=== PATIENT | male | born 1955 | race Asian ===

== ENCOUNTER 2016-07-15 09:32 | Day surgery (SDC) | payer OTHER ==
[~2016-07-15] VITALS: Ht 167.6 cm; Wt 78.5 kg
[2016-07-15 10:15] VITALS: Ht 167.6 cm; Wt 78.5 kg
[2016-07-15 10:35] VITALS: BP 118/67; PULSE 66; RESP 18
[2016-07-15] MEDS ORDERED: MIDAZOLAM 1 MG/ML 2 ML INJ ONE ×2 (11:34)
[2016-07-15] MEDS ORDERED: FENTAnyl 50 MCG/ML VIAL ONE (11:35)
--- NOTE | 2016-07-15 11:36 | GILP ---
DATE OF PROCEDURE: 07/15/2016 NAME OF PROCEDURE: Colonoscopy. PREOPERATIVE DIAGNOSIS: Rule out colon polyps. POSTOPERATIVE DIAGNOSES: Minimal external hemorrhoids. Rest of the colon appeared normal. DESCRIPTION OF PROCEDURE: After the informed written consent was obtained, the patient was asked to lie on the left lateral side. A total of 3 mg Versed and 75 mcg of fentanyl was given as intraveno us anesthesia. When the patient became somnolent, the Olympus video colonoscope was introduced into the rectum and scope was advanced all the way to the cecum. Entire colon appeared perfectly normal with no mucosal abnormality. On the way out, minimal external hemorrhoids were noted and the proce dure was terminated. PLAN: Recommend repeat colonoscopy in 10 years. Dictated By: DANELLE ARNOLD MD NC/NTS Conf#: [id number] DID#: [id number] CC: DANELLE ARNOLD MD; ;*EndCC*
[2016-07-15 11:51] VITALS: BP 134/73; RESP 20
== END 2016-07-15 12:11 | disposition home or self-care (01) ==
LOC: GIL 09:32
PROVIDERS: ATTEND Internal Medicine Gastroenterology
DX: Z12.11 Encounter for screening for malignant neoplasm of colon (principal)
CPT/HCPCS: 45378; J2250; J3010